=== PATIENT | female | born 1950 | race Caucasian/White ===

== ENCOUNTER 2021-11-12 12:43 | Day surgery (SDC) | payer OTHER ==
[2021-11-07 09:22] VITALS: BMI 26.6
[2021-11-12] MEDS ORDERED: DEXAMETHASONE SOD PHOSPHATE 4 MG/1 ML VIAL ONE ×2 (13:09→14:20)
[2021-11-12] MEDS ORDERED: ONDANSETRON 4 MG/2 ML VIAL ONE ×2 (13:09→14:20)
[2021-11-12] MEDS ORDERED: PROPOFOL 20 ML ONE (13:09)
[2021-11-12] MEDS ORDERED: MIDAZOLAM HCL 2 MG/2 ML SINGLE DOSE VIAL ONE (13:10)
[2021-11-12] MEDS ORDERED: BUPIVACAINE HCL 100 ML ONE (13:14)
[2021-11-12] MEDS ORDERED: LIDOCAINE 1% P/F 10 MG/ML VIAL ONE (13:20)
[2021-11-12] MEDS ORDERED: BUPIVACAINE HCL/PF 0.5% (5 MG/ML) 30 ML VIAL IJ ONE (13:20)
[2021-11-12] MEDS ORDERED: HYDROCORTISONE SOD SUCCINATE 100 MG/2 ML VIAL ONE (14:20)
[2021-11-12] MEDS ORDERED: ceFAZolin SODIUM 1 GM VIAL ONE (14:20)
[2021-11-12] MEDS ORDERED: oxyCODONE HCL 5 MG TABLET PO PRN ×2 (15:23)
[2021-11-12] MEDS ORDERED: ONDANSETRON 4 MG/2 ML VIAL IVPUSH PRN (15:23)
[2021-11-12 16:17] VITALS: PULSE 88; RESP 20; TEMP 97.1
[2021-11-12 16:49] VITALS: BP 130/72
== END 2021-11-12 16:50 | disposition home or self-care (01) ==
LOC: FASU 12:43
PROVIDERS: ATTEND Orthopaedic Surgery Hand Surgery
PROC: 0LN50ZZ Release Right Lower Arm and Wrist Tendon, Open Approach (ICD-10-PCS; 2021-11-12)
PROC: 0PSH04Z Reposition Right Radius with Internal Fixation Device, Open Approach (ICD-10-PCS; principal; 2021-11-12 14:33)
DX: S52.571A Other intraarticular fracture of lower end of right radius, initial encounter for closed fracture (principal); X58.XXXA Exposure to other specified factors, initial encounter; Y93.9 Activity, unspecified; Y92.9 Unspecified place or not applicable
CPT/HCPCS: 25290; 25609; C1713; 73110-TC-RT-FY; 73130-TC-RT-FY; 94760